=== PATIENT | female | born 1990 | race Caucasian/White ===

== ENCOUNTER 2017-12-09 22:00 | Emergency (ER) | payer MEDICAID, OTHER ==
[~2017-12-09] VITALS: Ht 160 cm; Wt 73.1 kg
[2017-12-09 23:00] LABS: CLARITY URINE CLEAR (CLEAR); COLOR URINE YELLOW (YELLOW); KETONES URINE NEGATIVE (NEGATIVE); LEUKOCYTE ESTERASE URINE TRACE (NEGATIVE); NITRITE URINE NEGATIVE (NEGATIVE); OCCULT BLOOD URINE NEGATIVE (NEGATIVE); PH URINE 6.5 (4.5-8.0); PROTEIN URINE NEGATIVE (NEGATIVE); SPECIFIC GRAVITY URINE 1.007 (1.005-1.030); UROBILINOGEN URINE 0.2 E.U./dL (0.2-1.0)
[2017-12-09 23:10] LABS: BASOPHILS % 0.3 % (0.0-2.0); EOSINOPHILS % 0.6 % (0.0-5.0); HEMATOCRIT. 34.3 % (36.0-48.0); HEMOGLOBIN. 11.6 g/dL (12.0-16.0); LYMPHOCYTES % 22.4 % (20.0-50.0); MEAN CORPUSCULAR HEMOGLOBIN 29.6 pg (28.0-32.0); MEAN CORPUSCULAR VOLUME 87.9 fL (81.0-99.0); MEAN PLATELET VOLUME 9.2 fl (7.4-10.4); MONOCYTES % 6.4 % (2.0-8.0); NEUTROPHILS % 70.3 % (40.0-76.0); PLATELET 161 x1000/uL (130-400); RED BLOOD CELL COUNT 3.91 mill/uL (4.2-5.4); RED CELL DISTRIBUTION WIDTH 13.6 % (11.6-14.6)
[2017-12-09 23:11] LABS: CHLORIDE 102 mEq/L (98-107)
[2017-12-09 23:35] LABS: B-HCG QUANTITATIVE 100061 mIU/mL (<3)
[2017-12-10 00:23] VITALS: BP 107/68
== END 2017-12-10 00:24 | disposition home or self-care (01) ==
LOC: ER 22:00
DX: O20.0 Threatened abortion (principal); O23.41 Unspecified infection of urinary tract in pregnancy, first trimester; Z3A.01 Less than 8 weeks gestation of pregnancy
CPT/HCPCS: 36415; 76801; 80053; 81003; 81025; 84702; 85025; 86850; 86870; 86900; 99285

== ENCOUNTER 2018-02-20 14:21 | Emergency (ER) | payer OTHER ==
[~2018-02-20] VITALS: Ht 160 cm; Wt 69.0 kg
[2018-02-20 14:30] VITALS: BP 116/60
[2018-02-20] MEDS ORDERED: ACETAMINOPHEN 325MG TABLET PO ONE (19:00)
== END 2018-02-20 18:50 | disposition home or self-care (01) ==
LOC: ER 15:58
DX: O26.892 Other specified pregnancy related conditions, second trimester (principal); J06.9 Acute upper respiratory infection, unspecified; Z3A.17 17 weeks gestation of pregnancy; Z98.890 Other specified postprocedural states
CPT/HCPCS: 99282

== ENCOUNTER 2018-06-11 20:59 | Observation (INO) | payer MEDICAID, OTHER ==
[~2018-06-11] VITALS: Ht 160 cm; Wt 79.8 kg
[~2018-06-11 20:59] MED LIST: PREN1TAB78 MT
== END 2018-06-11 23:26 | disposition home or self-care (01) ==
LOC: INTOOBSV 20:59 → L&D 20:59
PROVIDERS: ADMIT Specialist; ATTEND Specialist
DX: O46.93 Antepartum hemorrhage, unspecified, third trimester (principal); Z3A.32 32 weeks gestation of pregnancy
CPT/HCPCS: 76805; 76818; 99281; G0378

== ENCOUNTER 2018-07-02 21:17 | Observation (INO) | payer OTHER ==
[~2018-07-02] VITALS: Ht 160 cm; Wt 80.7 kg
[2018-07-02] MEDS ORDERED: LACTATED RINGERS 1,000 ML IV SCH (22:15)
[2018-07-02 23:49] LABS: CLARITY URINE CLEAR (CLEAR); COLOR URINE YELLOW (YELLOW); KETONES URINE NEGATIVE (NEGATIVE); LEUKOCYTE ESTERASE URINE NEGATIVE (NEGATIVE); NITRITE URINE NEGATIVE (NEGATIVE); OCCULT BLOOD URINE NEGATIVE (NEGATIVE); PH URINE 5.5 (4.5-8.0); PROTEIN URINE NEGATIVE (NEGATIVE); SPECIFIC GRAVITY URINE 1.019 (1.005-1.030); UROBILINOGEN URINE 0.2 E.U./dL (0.2-1.0)
== END 2018-07-03 01:03 | disposition home or self-care (01) ==
LOC: L&D 21:17
PROVIDERS: ADMIT Obstetrics & Gynecology; ATTEND Obstetrics & Gynecology
DX: O62.9 Abnormality of forces of labor, unspecified (principal); O26.893 Other specified pregnancy related conditions, third trimester; R19.7 Diarrhea, unspecified; R11.0 Nausea; Z3A.36 36 weeks gestation of pregnancy
CPT/HCPCS: 81003; 96360; 96361; G0378; J7120

== ENCOUNTER 2018-07-04 18:22 | Inpatient (IN) | payer OTHER ==
[~2018-07-04] VITALS: Ht 160 cm; Wt 80.7 kg
[2018-07-04] MEDS ORDERED: DEXT 5%/LR + PITOCIN 20UNITS/L 1,000 ML IV SCH ×2 (19:09→23:16)
[2018-07-04] MEDS ORDERED: METHYLERGONOVINE MALEATE 0.2 MG/ML IM PRN (19:15)
[2018-07-04] MEDS ORDERED: CARBOPROST TROMETHAMINE 250 MCG/ML AMPUL IM PRN (19:15)
[2018-07-04] MEDS ORDERED: NALOXONE HCL 0.4 MG/ML 1ML VIAL IM PRN (19:15)
[2018-07-04] MEDS ORDERED: LACTATED RINGERS 1,000 ML IV SCH (19:30)
[2018-07-04 19:46] LABS: BASOPHILS % 0.5 % (0.0-2.0); EOSINOPHILS % 0.7 % (0.0-5.0); HEMATOCRIT. 31.7 % (36.0-48.0); HEMOGLOBIN. 10.8 g/dL (12.0-16.0); LYMPHOCYTES % 18.5 % (20.0-50.0); MEAN CORPUSCULAR HEMOGLOBIN 29.7 pg (28.0-32.0); MEAN CORPUSCULAR VOLUME 87.5 fL (81.0-99.0); MEAN PLATELET VOLUME 9.6 fl (7.4-10.4); MONOCYTES % 6.6 % (2.0-8.0); NEUTROPHILS % 73.7 % (40.0-76.0); PLATELET 202 x1000/uL (130-400); RED BLOOD CELL COUNT 3.62 mill/uL (4.2-5.4); RED CELL DISTRIBUTION WIDTH 13.3 % (11.6-14.6)
[2018-07-04 19:53] LABS: INR 0.9; PARTIAL THROMBOPLASTIN TIME 26.4 sec (23.4-31.0); PROTHROMBIN TIME 9.4 sec (9.1-11.1)
[2018-07-04] MEDS ORDERED: CITRIC ACID/SODIUM CITRATE SOLN 30ML UDC PO NR (20:00)
[2018-07-04] MEDS ORDERED: CEFAZOLIN 2000MG PREMIX 50 ML IV ONE (20:10)
[2018-07-04] MEDS ORDERED: EPHEDRINE SULFATE 50MG/ML VIAL ONE (20:10)
[2018-07-04] MEDS ORDERED: OXYTOCIN 10 UNITS/ML 1ML ONE (20:10)
[2018-07-04] MEDS ORDERED: MORPHINE SULFATE/PF 1MG/ML 10ML AMP ONE (20:10)
[2018-07-04] MEDS ORDERED: DIPHENHYDRAMINE 50MG/ML VIAL ONE ×2 (20:10→22:48)
[2018-07-04] MEDS ORDERED: PHENYLEPHRINE HCL 10 MG/ML 1ML (IV VIAL) IV ONE (20:10)
[2018-07-04] MEDS ORDERED: SODIUM CHLORIDE 0.9% 10ML VIAL ONE (20:10)
[2018-07-04] MEDS ORDERED: FENTANYL CITRATE/PF 50MCG/ML 2ML VIAL ONE (20:10)
[2018-07-04 20:41] LABS: HEPATITIS B SURFACE ANTIGEN NEGATIVE
[2018-07-04 21:16] LABS: CLARITY URINE CLEAR (CLEAR); COLOR URINE YELLOW (YELLOW); KETONES URINE NEGATIVE (NEGATIVE); LEUKOCYTE ESTERASE URINE TRACE (NEGATIVE); NITRITE URINE NEGATIVE (NEGATIVE); OCCULT BLOOD URINE 1+ (NEGATIVE); PROTEIN URINE NEGATIVE (NEGATIVE); SPECIFIC GRAVITY URINE 1.009 (1.005-1.030); UROBILINOGEN URINE 0.2 E.U./dL (0.2-1.0)
[2018-07-04 21:18] LABS: *AMPHETAMINES SCREEN URINE NEGATIVE (NEGATIVE); *BARBITURATES SCREEN URINE NEGATIVE (NEGATIVE); *BENZODIAZEPINES SCREEN URINE NEGATIVE (NEGATIVE); *COCAINE SCREEN URINE NEGATIVE (NEGATIVE); CANNABINOID URINE SCREEN NEGATIVE (NEGATIVE); METHADONE URINE SCREEN NEGATIVE (NEGATIVE); OPIATES URINE SCREEN NEGATIVE (NEGATIVE); PHENCYCLIDINE URINE SCREEN NEGATIVE (NEGATIVE)
[2018-07-04] MEDS ORDERED: PNEUMOCOCCAL 23-VAL P-SAC VAC 0.5 ML IM ONE (21:45)
[2018-07-04] MEDS ORDERED: INFLUENZA VIRUS VACCINE(AFLURIA) 0.5ML SYR IM ONE (22:00)
[2018-07-04] MEDS ORDERED: MIDAZOLAM HCL 2 MG/2 ML VIAL ONE ×2 (22:35→22:59)
[2018-07-04] MEDS ORDERED: GLYCOPYRROLATE 0.2 MG/ML 2ML VIAL ONE (22:36)
[2018-07-04] MEDS ORDERED: KETOROLAC 60MG/2ML VIAL IM ONE (23:26)
[2018-07-04] MEDS ORDERED: ACETAMINOPHEN WITH CODEINE 300/30MG TABLET PO PRN (23:30)
[2018-07-04] MEDS ORDERED: RHO(D) IMMUNE GLOBULIN 300 MCG/SYR IM PRN (23:30)
[2018-07-04] MEDS ORDERED: HYDROMORPHONE HCL/PF 2MG/ML CPJ IM PRN (23:30)
[2018-07-04] MEDS ORDERED: IBUPROFEN 400MG TABLET PO PRN (23:30)
[2018-07-04] MEDS ORDERED: BISACODYL 10MG SUPP PR PRN (23:30)
[2018-07-04] MEDS ORDERED: BUTORPHANOL TARTRATE 2 MG/ML VIAL IV PRN (23:45)
[2018-07-04] MEDS ORDERED: DIPHENHYDRAMINE 50MG/ML VIAL IV PRN (23:45)
[2018-07-04] MEDS ORDERED: NALOXONE HCL 0.4 MG/ML 1ML VIAL IV PRN (23:45)
[2018-07-04] MEDS ORDERED: KETOROLAC 30MG/ML VIAL IV PRN (23:45)
[2018-07-05] VITALS (8 sets, daily range): BP systolic 91–98; BP diastolic 45–54
[2018-07-05 09:35] LABS: BASOPHILS % 0.4 % (0.0-2.0); EOSINOPHILS % 0.3 % (0.0-5.0); HEMATOCRIT. 28.2 % (36.0-48.0); HEMOGLOBIN. 9.6 g/dL (12.0-16.0); LYMPHOCYTES % 12.8 % (20.0-50.0); MEAN CORPUSCULAR HEMOGLOBIN 29.9 pg (28.0-32.0); MEAN CORPUSCULAR VOLUME 88.1 fL (81.0-99.0); MEAN PLATELET VOLUME 9.4 fl (7.4-10.4); MONOCYTES % 6.2 % (2.0-8.0); NEUTROPHILS % 80.3 % (40.0-76.0); PLATELET 164 x1000/uL (130-400); RED CELL DISTRIBUTION WIDTH 13.6 % (11.6-14.6)
[2018-07-05] MEDS ORDERED: BUTORPHANOL TARTRATE 2 MG/ML VIAL IV PRN (13:00)
[2018-07-05] MEDS: KETOROLAC 30MG/ML VIAL IV PRN ×2 (14:45→21:01)
[2018-07-06] VITALS: BP 98/49
[2018-07-06] MEDS: IBUPROFEN 800MG TABLET PO PRN ×3 (00:39→18:05)
[2018-07-06 04:00] VITALS: BP 99/57
[2018-07-06 07:34] VITALS: BP 91/49
[2018-07-06] MEDS ORDERED: BUPIVACAINE HCL/DEXTROSE/PF 0.75% 2ML AMP INJ ONE (07:38)
[2018-07-06 16:04] VITALS: BP 91/53
[2018-07-06 20:00] VITALS: BP 97/57
[2018-07-07] VITALS: BP 89/53
[2018-07-07] MEDS: IBUPROFEN 800MG TABLET PO PRN (00:10)
[2018-07-07 04:00] VITALS: BP 82/56
== END 2018-07-07 12:00 | disposition home or self-care (01) | DRG 540 ==
LOC: L&D 18:22 → OBSVTOIN 18:22 → UNDODISOB 19:00 → 7EST PP/OB 07-05 02:39
PROVIDERS: ADMIT Obstetrics & Gynecology; ATTEND Obstetrics & Gynecology
PROC: 10D00Z1 Extraction of Products of Conception, Low, Open Approach (ICD-10-PCS; principal; 2018-07-04 23:05)
DX: O34.211 Maternal care for low transverse scar from previous cesarean delivery (principal); D64.9 Anemia, unspecified; O99.02 Anemia complicating childbirth; Z37.0 Single live birth; Z3A.37 37 weeks gestation of pregnancy
CPT/HCPCS: 36415; 80305; 86592; 86703; 86762; 86850; 86900; 86920; 87340; 88307; 99281; A4216; J0690; J1170; J1200; J1885; J2250; J2274; J2370; J2590; J3010; J3490; J7120

== ENCOUNTER 2025-01-10 18:44 | Emergency (ER) | payer OTHER ==
[~2025-01-10] VITALS: Ht 160 cm; Wt 82.0 kg
[2025-01-10 18:45] VITALS: O2SAT 99
[2025-01-10 18:55] VITALS: BP 117/76; PULSE 71; RESP 18; TEMP 36.9; O2SAT 99
[2025-01-10] MEDS ORDERED: AMOX1TAB16 MT (22:44)
[2025-01-10] MEDS ORDERED: FLUT15.844 BOTHNSTRLS (22:44)
[2025-01-10] MEDS ORDERED: [UNRECOGNIZED DRUG - CODE] MT (22:44)
== END 2025-01-10 22:57 | disposition home or self-care (01) ==
LOC: ER 18:44
DX: J32.9 Chronic sinusitis, unspecified (principal)
CPT/HCPCS: 99283